=== PATIENT | male | born 1960 | race Caucasian/White ===

== ENCOUNTER 2022-06-27 07:47 | Day surgery (SDC) | payer BC ==
[2022-06-27] MEDS ORDERED: Ringers Lactate 1,000 ML IV ONE ×2 (08:06→12:03)
[2022-06-27] MEDS ORDERED: CEFAZOLIN SODIUM 1 GM/VIAL ONE (08:06)
[2022-06-27] MEDS ORDERED: ACETAMINOPHEN 500 MG TAB ONE (08:27)
[2022-06-27] MEDS ORDERED: CELECOXIB 100 MG CAPSULE ONE (08:27)
[2022-06-27] MEDS ORDERED: propofoL 200 MG/20 ML VIAL IV ONE (10:19)
[2022-06-27] MEDS ORDERED: MIDAZOLAM HCL 2 MG/2 ML INJ ONE (10:19)
[2022-06-27] MEDS ORDERED: LIDOCAINE 1% MPF 5 ML VIAL ONE (10:19)
[2022-06-27] MEDS ORDERED: FENTANYL CITR 100 MCG/2 ML ONE (10:19)
[2022-06-27] MEDS ORDERED: ROCURONIUM 50 MG/5 ML VIAL IV ONE (10:20)
[2022-06-27] MEDS ORDERED: LIDOCAINE 1% W/EPI 1:100,000 30 ML VIAL ONE (10:21)
[2022-06-27] MEDS ORDERED: LIDOCAINE JELLY 2%- 5 ML TUBE ONE (10:21)
[2022-06-27] MEDS ORDERED: NS 0.9% VIAL 10 ML ONE (10:34)
[2022-06-27] MEDS ORDERED: KETOROLAC 30 MG/ML INJ ONE (10:54)
[2022-06-27] MEDS ORDERED: ONDANSETRON 4 MG/2 ML VIAL ONE (10:55)
[2022-06-27] MEDS ORDERED: Mastisol Adhesive Liq ONE (12:23)
[2022-06-27] MEDS: HYDROMORPHONE HCL 1 MG/ML INJ ONE ×2 (13:14→13:19)
[2022-06-27 13:16] VITALS: O2SAT 99
[2022-06-27] MEDS ORDERED: HYDROCODONE/APAP 5/325 MG TAB ONE (14:01)
[2022-06-27 15:28] VITALS: BP 133/73; TEMP 97.6
--- NOTE | 2022-06-30 00:18 | OP ---
Date of Procedure: 06/27/2022 Surgeon: STEVE MOORE Primary Care Physician: Starla Lopez Preoperative Diagnoses: 1. Chronic right submandibular gland sialadenitis. 2. Chronic right submandibular gland sialolithiasis. Postoperative Diagnoses: 1. Chronic right submandibular gland sialadenitis. 2. Chronic right submandibular gland sialolithiasis. Procedure: Right submandibular gland excision. Anesthesia: General endotracheal anesthesia was administered. I also infiltrated approximately 10 mL of 1% lidocaine with 1:200,000 epinephrine at the incision site. Specimens: Right submandibular gland with 2 large submandibular gland stones was submitted to pathology for evaluation. Estimated Blood Loss: Approximately 10 to 20 mL. Findings: Large inflamed right submandibular gland with obstruction of the distal duct and proximal gland with 2 large salivary gland stones. Complications: None. Disposition: Stable. The patient procedure well. Indication For Procedure: Patient is a pleasant 61-year-old male who has a history of recurrent right submandibular gland sialolithiasis resulting in chronic inflammation and infection of the gland. The patient has been on multiple rounds of antibiotics and the stone was lodged in the proximal portion of the submandibular gland. Thus, cell endoscopy was not recommended and rather was recommended that he have the gland removed. He understood and all questions were answered. Risks versus benefits and complications were explained in detail and a consent form signed, which placed in the chart. Description Of Procedure: The patient was transferred from the preoperative holding area to the operative suite by primary Anesthesia, placed on the operating table supine, sedated, intubated in normal fashion. Approximately 10 mL of 1% lidocaine with 1:200,000 epinephrine was infiltrated at the incision site, which was carefully planned at least 2 cm below the inferior mandible. The patient was then sterilely prepped and draped. A curvilinear incision was made with a #15 blade scalpel in a skin crease approximately 2 to 2.2 cm below the right mandible and the incision was approximately 3 to 4 cm in length as the gland was moderately enlarged. Once at the level of the subdermal layer, I switched to needlepoint electrocautery on the 20th setting of coagulation to continue dissection down to the inferior border of the submandibular gland. Once down to the overlying submandibular fascia, I was able to dissect carefully around the gland utilizing LigaSure. The facial vein was visualized posteriorly going into the gland and then returning out of the gland superiorly towards the superior neck and these vessels were carefully cut and ligated with 2-0 silk suture. The vessels were ligated with stick ties. I was able to then freed the posterior edge of the gland anteriorly and I continued to dissect along the inferior edge of the gland and then posteriorly carefully moving anteriorly with the LigaSure. Once I was able to free up the glands superior and posterior and inferior borders to the anterior border, I was able to locate where the stone was, it appeared at the distal end of the submandibular duct. Incision was made over the duct and I was able to extract 2 large stones and placed into specimen cup. I repaired the submandibular duct with 2-0 silk suture in a continuous running fashion. I then ligated the duct with the LigaSure. I was then able to completely remove the submandibular gland utilizing a LigaSure where I clamped, cauterized, and cut the anterior border. The gland was placed into a specimen cup and sent to pathology for evaluation. Saline irrigation was introduced into the neck wound and removed with suction Bovie. All areas were checked for hemostasis and hemostasis was achieved. A small He-Moscoso drain was introduced into the wound bed and brought out through the neck incision. I secured the drain in place with 2-0 silk suture. I then reapproximated the platysma and subdermal subcutaneous tissue with 3-0 Vicryl in a simple interrupted fashion. I then reapproximated the epidermis and dermis layer with 4-0 Monocryl in a subcuticular fashion. The suture tails were Steri-Strips to the neck and a compressive dressing and drain dressing were placed. The drain was set to bulb suction and it was functioning nicely. The patient tolerated the procedure well and he was transferred back to Department of Anesthesia in stable condition. He was discharged home on antibiotic and analgesic medication and will follow up in 3 to 4 days for drain removal. LYDIA/BEBE Voice ID: [id number] Report ID: [id number]
== END 2022-06-27 15:00 | disposition home or self-care (01) ==
LOC: OR 07:47
PROVIDERS: ATTEND Otolaryngology Facial Plastic Surgery
PROC: 0CBG0ZZ Excision of Right Submaxillary Gland, Open Approach (ICD-10-PCS; principal; 2022-06-27 09:15)
DX: K11.21 Acute sialoadenitis (principal); K11.5 Sialolithiasis; K21.9 Gastro-esophageal reflux disease without esophagitis
CPT/HCPCS: 88305; 42450; J2704; J2001; J2250; J3010; A4216; J1170; J7120 ×2; J2405; J0690

== ENCOUNTER 2023-04-03 08:58 | Day surgery (SDC) | payer BC ==
[2023-04-03] MEDS ORDERED: Ringers Lactate 1,000 ML IV ONE (09:21)
[2023-04-03] MEDS ORDERED: propofoL 200 MG/20 ML VIAL IV ONE (11:58)
[2023-04-03] MEDS ORDERED: LIDOCAINE 2% MPF 5 ML VIAL ONE (11:58)
[2023-04-03] MEDS ORDERED: MIDAZOLAM HCL 2 MG/2 ML INJ ONE (11:58)
[2023-04-03] MEDS ORDERED: dexAMETHasone 10 MG/ML VIAL ONE (11:58)
[2023-04-03] MEDS ORDERED: KETOROLAC 30 MG/ML INJ ONE (11:58)
[2023-04-03] MEDS ORDERED: FENTANYL CITR 100 MCG/2 ML ONE (11:58)
[2023-04-03] MEDS ORDERED: ONDANSETRON 4 MG/2 ML VIAL ONE (12:00)
[2023-04-03] MEDS: LIDOCAINE HCL/EPINEPHRINE 20 ML MDV ONE ×2 (12:04→13:02)
[2023-04-03] MEDS ORDERED: CEFAZOLIN SODIUM 1 GM/VIAL ONE (13:46)
[2023-04-03 14:36] VITALS: BP 134/79; TEMP 97.5; O2SAT 100
--- NOTE | 2023-04-04 13:59 | OP ---
Date of Procedure: 04/03/2023 Surgeon: STEVE MOORE Primary Care Physician: Unknown. Preoperative Diagnosis: Right upper neck infective cyst/abscess. Postoperative Diagnosis: Right upper neck infective cyst/abscess. Procedure: Incision and drainage and excision of right upper neck cyst under general sedation. Anesthesia: General endotracheal anesthesia was administered. I also infiltrated approximately 10 m L of 1% lidocaine with 1:100,000 epinephrine at the incision site. Estimated Blood Loss: Less than 5 mL. Specimens: Infected cyst with fluid contents was removed and handed off the field and sent to Angelo mcfadden for evaluation. Findings: Hard indurated fluid-filled infected cyst or abscess noted in right upper neck level 1. P atient had significant scarring from prior submandibular gland excision. The cyst was located latera l to the platysma muscle and there was no defect or abnormality deep to the platysma. Complications: None. Disposition: Stable. The patient tolerated the procedure well. Indication For Procedure: Patient is a pleasant 62-year-old male who underwent right submandibulecto several months ago and had an uneventful postoperative course. He, however, presented to my offic e acutely with a fluid-filled abscess or cyst located in the general area of the submandibular gland excision. Patient was placed on antibiotics and the area did decrease in size but it still needed to be drained, possibly removed if it was an infected follicular cyst. These were indications to bring the patient to operating suite for the above-mentioned procedure. He understood. All questions wer e answered. Risks versus benefits and complications were explained in detail and a consent form was signed which was placed in the chart. Description Of Procedure: Patient was transferred from the preoperative holding area to the operativ e suite by Department of Anesthesia, placed on the operating table supine, sedated and intubated in n ormal fashion. I infiltrated approximately 10 mL of 1% lidocaine with 1:100,000 epinephrine at the r ight upper neck incision site. Patient was then sterilely prepped and draped. I made an incision directly over the suspected abscess/cyst through the epidermis down to the subcuta neous tissue layer. I noted friable tissue and fat located in this area and this was removed with a LigaSure. I also detected possibly a cyst capsule and this was removed with the LigaSure and handed off the field. Once the cyst was decompressed and removed, I then irrigated the wound and observed f or any bleeding sites and there was a small bleeding site that was cauterized with bipolar. I did di ssect down to the platysmal muscle layer. I did not detect anything deep to that to suggest that zeenat s was coming from his prior surgery site. Once hemostasis was achieved, subcutaneous and subdermal t issue were reapproximated with 3-0 Vicryl in a simple interrupted fashion followed by epidermal layer closure with 4-0 Monocryl in a continuous subcuticular fashion. A compressive dressing was placed a nd the patient was handed back to the Department of Anesthesia in stable condition. He was subsequen tly awakened, extubated, and transferred to postoperative care unit in stable condition and will be d ischarged home to finish his oral antibiotics and will take pain medicine as needed and he will follo w up in 1 week or sooner if needed. LYDIA/BEBE Voice ID: [id number] Report ID: [id number]
== END 2023-04-03 15:05 | disposition home or self-care (01) ==
LOC: OR 08:58
PROVIDERS: ATTEND Otolaryngology Facial Plastic Surgery
PROC: 0JB40ZZ Excision of Right Neck Subcutaneous Tissue and Fascia, Open Approach (ICD-10-PCS; principal; 2023-04-03 10:45)
DX: L02.11 Cutaneous abscess of neck (principal); L92.3 Foreign body granuloma of the skin and subcutaneous tissue
CPT/HCPCS: 88304; 88305; J0690; J1100; J2001; J2250; J2405; J2704; J3010; J7120